=== PATIENT | male | born 1950 | race Caucasian/White ===

== ENCOUNTER → 2020-01-20 13:42 | Outpatient (REF) | payer MEDICARE, SELFPAY | LOC: ANHLAB 13:42 | PROVIDERS: PCP Internal Medicine; Visit Provider Nurse Practitioner | DX: C44.519 Basal cell carcinoma of skin of other part of trunk (principal) | CPT/HCPCS: 88305 ==

== ENCOUNTER → 2020-03-15 08:06 | Outpatient (REF) | payer MEDICARE, SELFPAY | LOC: ANHLAB 08:06 | PROVIDERS: PCP Internal Medicine; Visit Provider Nurse Practitioner | DX: C44.519 Basal cell carcinoma of skin of other part of trunk (principal) | CPT/HCPCS: 88305; 88331; 88342 ==

== ENCOUNTER → 2020-05-06 12:58 | Outpatient (REF) | payer MEDICARE, SELFPAY | LOC: ANHLAB 12:58 | PROVIDERS: PCP Internal Medicine; Visit Provider Nurse Practitioner | DX: D22.5 Melanocytic nevi of trunk (principal) | CPT/HCPCS: 88305; 88342 ==

== ENCOUNTER 2020-06-23 10:02 | Outpatient (CLI) | payer MEDICARE, SELFPAY ==
--- NOTE | ~2020-06-23 | US_ITS ---
EXAMINATION: US aorta [facility] DATE: 06/23/2020 10:39 INDICATION: Abdominal aortic aneurysm screening. TECHNIQUE: Grayscale, color Doppler, and pulsed Doppler images of the aorta and common iliac arteries were obtained. COMPARISON: None. FINDINGS: The aorta is normal in caliber. The right common iliac artery is normal in caliber. The left common i liac artery is normal in caliber. IMPRESSION: 1. No abdominal aortic aneurysm. Reviewed, dictated and finalized at location B.
== END 2020-06-23 10:03 | disposition home or self-care (01) ==
PROVIDERS: PCP Internal Medicine; Visit Provider Internal Medicine
DX: Z13.6 Encounter for screening for cardiovascular disorders (principal); Z87.891 Personal history of nicotine dependence
CPT/HCPCS: 76706

== ENCOUNTER 2020-09-07 14:55 | Outpatient (CLI) | payer MEDICARE, SELFPAY ==
--- NOTE | ~2020-09-07 | XR_ITS ---
XR knee RT 3V 09/07/2020 15:15 INDICATION: Right knee pain for 2 months. PROCEDURE: 3 views right knee COMPARISON: No prior studies for comparison. FINDINGS: Fracture, dislocation or subluxation is not identified. No significant joint effusion. The soft tissues appear within normal limits. No foreign bodies are identified. IMPRESSION: 1: NO ACUTE BONE OR JOINT ABNORMALITY IDENTIFIED. Reviewed, dictated and finalized at location A.
== END 2020-09-07 14:56 | disposition home or self-care (01) ==
LOC: ANHIMG 14:59
PROVIDERS: PCP Internal Medicine; Visit Provider Internal Medicine
DX: M25.561 Pain in right knee (principal)
CPT/HCPCS: 73562

== ENCOUNTER 2020-10-04 13:05 | Outpatient (CLI) | payer MEDICARE, SELFPAY ==
--- NOTE | ~2020-10-04 | MR_ITS ---
EXAMINATION: MR knee RT wo con DATE: 10/04/2020 14:07 INDICATION: Unspecified right knee pain TECHNIQUE: Magnetic resonance imaging (MRI) of the right knee was performed without intravenous contr ast. Sequences included coronal PD-weighted FSE, coronal PD-weighted FS FSE, sagittal T2-weighted FS E, sagittal PD-weighted FS FSE and axial PD weighted fat saturated FSE. COMPARISON: None. FINDINGS: Medial compartment: Complex tear of the the body and posterior horn of the medial meniscus. Articular cartilage is carmina l. Lateral compartment: Lateral meniscus is normal. Small region of shallow chondral fissuring at the anterior weightbearing lateral femoral condyle. Patellofemoral compartment: Partial-thickness chondral ulceration with deeper fissuring at the cephalad aspect of the lateral pat ellar facet. Small region of deep chondral fissuring at the central aspect of the medial patellar fac et. Ligaments and tendons: Anterior and posterior cruciate ligaments are normal. The medial collateral ligament and fibular marilee ateral ligament complex are normal. Moderate distal quadriceps tendinopathy without discrete tear. Sm all amount of enthesopathic ossification the distal quadriceps tendon. Patellar tendon is normal. The visualized medial and lateral hamstring tendons as well as the iliotibial band are normal. Fluid: Physiologic amount of fluid in the joint space. No loose osteochondral bodies identified. Minimal pre patellar bursitis. Subcutaneous edema anterior to the patellar tendon. Osseous/other: Nonspecific mild marrow edema at the medial side of the patella. Otherwise normal marrow signal. No f racture or pathologic marrow replacing process. There is some fatty atrophy of the visualized distal semimembranosus muscle belly. IMPRESSION: 1. Complex medial meniscal tear. 2. Mild medial and patellofemoral osteoarthritis with small regions of moderate grade chondromalacia. 3. Chronic quadriceps enthesopathy with moderate tendinopathy and small amount of enthesopathic ossif ication. 4. Prepatellar bursitis and calcific mild marrow edema in the underlying medial aspect of the patella . Reviewed, dictated and finalized at location B. IMPRESSION: 1. Complex medial meniscal tear. 2. Mild medial and patellofemoral osteoarthritis with small regions of moderate grade chondromalacia. 3. Chronic quadriceps enthesopathy with moderate tendinopathy and small amount of enthesopathic ossification. 4. Prepatellar bursitis and calcific mild marrow edema in the underlying medial aspect of the patella.
== END 2020-10-04 13:06 | disposition home or self-care (01) ==
PROVIDERS: PCP Internal Medicine; Visit Provider Internal Medicine
DX: M25.561 Pain in right knee (principal); S83.231A Complex tear of medial meniscus, current injury, right knee, initial encounter; M17.11 Unilateral primary osteoarthritis, right knee; M94.261 Chondromalacia, right knee; M76.891 Other specified enthesopathies of right lower limb, excluding foot
CPT/HCPCS: 73721

== ENCOUNTER 2021-10-21 08:59 | Emergency (ER) | payer MEDICARE, SELFPAY ==
[2021-10-21 09:07] VITALS: BP 168/88; PULSE 97; RESP 18; TEMP 37.7; O2SAT 97
--- NOTE | 2021-10-21 09:15 | ED.URI ---
HPI - URI/Sore Throat General Chief Complaint: Upper Respiratory Infection Stated Complaint: Sinus Time Seen by Provider: 10/21/21 09:16 History of Present Illness HPI Narrative: Naga Fabian is a 71 yo male with high cholesterol, GERD osteoarthritis w history of basal cell carcinoma, comes with complaints of sinus pressure that is going in the jaw and ear since yesterday no fever no chills no other symptoms he has a mild dry cough Related Data Allergies Allergy/AdvReac Type Severity Reaction Status Date / Time No Known Allergies Allergy Verified 07/01/21 10:53 Review of Systems Review of Systems: CONSTITUTIONAL: Denies fever, chills, sweats. EYES: Denies visual changes, redness, discharge. ENT: Denies rhinorrhea, congestion, sore throat, otalgia. Sinus pressure CARDIOVASCULAR: Denies chest pain, palpitations, edema. RESPIRATORY: Denies dyspnea, wheezing, mild cough c GASTROINTESTINAL: Denies abdominal pain, nausea, vomiting, diarrhea. GENITOURINARY: Denies dysuria, hematuria, abnormal discharge SKIN: Denies rash or itching. NEUROLOGIC: Denies numbness, or focal weakness. PSYCHIATRIC: Denies anxiety or depression. [facility] Past Medical History Medical History (Updated 10/21/21 @ 09:27 by Shira Sharma CNP) GERD (gastroesophageal reflux disease) High cholesterol History of basal cell carcinoma of skin Osteoarthritis Family History Family History Father Carcinoma of colon Mother Family history of Alzheimer's disease, Onset Age: 83 Patient's mother is , Onset Age: 83 Social History Social History Years smoked: 5 Tobacco type: pipe Second hand tobacco smoke exposure: Yes Alcohol intake: current Drinks per week: 5 Alcohol use details: social Substance use: never Substance use type: does not use Comments At time of signature, I agree with nursing past medical, surgical, social and family history. There is no relevant family history pertinent to the presenting complaint. Exam Narrative: GENERAL: This is a well-nourished, well-developed patient, in mild distress. HEAD: normocephalic, atraumatic. EYES: Sclera clear/white. Vision is grossly intact. EARS: External ears normal, auditory canals clear and without drainage, Some fluid behind TMs normal without perforation. Hearing grossly intact. NOSE: External nose normal without nasal discharge, nares without redness, no rhinorrhea. THROAT: Mucous membranes moist, posterior pharynx mild erythema NECK: Neck supple, n CARDIOVASCULAR: Regular rate and rhythm without murmurs, gallops, or rubs. RESPIRATORY: Clear to auscultation. Breath sounds equal bilaterally. No wheezes, rales, or rhonchi. GASTROINTESTINAL: Not done SKIN: warm, intact with no suspicious lesions or rash, good texture and turgor. NEURO: awake, alert, and oriented to person, place and time. There were no obvious focal neurologic abnormalities. Steady gait EXTREMITIES: Normal range of motion. BACK: Nontender without deformity Course Course Emergency Course: Patient comes with sinus pressure and a mild cough since yesterday Darted on steroids 40 mg a day x5 days and Tessalon Perles should use Flonase if continues to have difficulty discussed using Zyrtec every day for allergies Level of Care: Express Care Visit Vital Signs Vital signs: Vital Signs Temperature 99.9 F H 10/21/21 09:07 Pulse Rate 97 10/21/21 09:07 Respiratory Rate 18 10/21/21 09:07 Blood Pressure 168/88 H 10/21/21 09:07 Pulse Oximetry 97 10/21/21 09:07 Oxygen Delivery Room Air 10/21/21 09:07 Temperature 99.9 F H 10/21/21 09:07 Pulse Rate 97 10/21/21 09:07 Respiratory Rate 18 10/21/21 09:07 Blood Pressure 168/88 H 10/21/21 09:07 Pulse Oximetry 97 10/21/21 09:07 Oxygen Delivery Room Air 10/21/21 09:07 MDM - URI/Sore Throat Different
== END 2021-10-21 09:33 | disposition home or self-care (01) ==
PROVIDERS: Emergency Provider Nurse Practitioner; PCP Internal Medicine
DX: J01.10 Acute frontal sinusitis, unspecified (principal); K21.9 Gastro-esophageal reflux disease without esophagitis; E78.00 Pure hypercholesterolemia, unspecified; M19.90 Unspecified osteoarthritis, unspecified site; Z85.828 Personal history of other malignant neoplasm of skin
CPT/HCPCS: 99213; G0463

== ENCOUNTER 2021-11-29 14:50 | Outpatient (NON) | payer MEDICARE, SELFPAY | END 2021-11-29 14:51 | disposition home or self-care (01) | LOC: ANHLAB 14:54 | PROVIDERS: PCP Internal Medicine; Visit Provider Nurse Practitioner | DX: C44.92 Squamous cell carcinoma of skin, unspecified (principal); L82.1 Other seborrheic keratosis | CPT/HCPCS: 88305; 88342 ==

== ENCOUNTER 2021-12-26 12:43 | Outpatient (NON) | payer MEDICARE, SELFPAY | END 2021-12-26 12:44 | disposition home or self-care (01) | LOC: ANHLAB 12:43 | PROVIDERS: PCP Internal Medicine; Visit Provider Nurse Practitioner | DX: C44.92 Squamous cell carcinoma of skin, unspecified (principal) | CPT/HCPCS: 88305; 88331 ==

== ENCOUNTER 2022-09-05 12:06 | Outpatient (NON) | payer MEDICARE, SELFPAY | END 2022-09-05 12:07 | disposition home or self-care (01) | PROVIDERS: Visit Provider Nurse Practitioner | DX: L57.0 Actinic keratosis (principal) | CPT/HCPCS: 88305 ==

== ENCOUNTER 2022-09-08 18:38 | Emergency (ER) | payer MEDICARE, SELFPAY ==
--- NOTE | ~2022-09-08 | XR_ITS ---
XR knee RT 3V 09/08/2022 20:02 Indication: Right knee pain after fall. Procedure: 3 views right knee Comparison: 09/07/2020 Findings: No acute fracture is identified. There is a large joint effusion. There are multiple ossifi c densities in the suprapatellar soft tissues, consistent with heterotopic ossification. Impression: 1: No acute fracture. 2: Large joint effusion with heterotopic ossification in the suprapatellar soft tissues. Reviewed, dictated and finalized at location A. Impression: 1: No acute fracture. 2: Large joint effusion with heterotopic ossification in the suprapatellar sof t tissues.
[2022-09-08 18:59] VITALS: BP 129/101; PULSE 77; RESP 18; TEMP 36.6; O2SAT 99
[2022-09-09 00:18] VITALS: BP 166/104; PULSE 74; RESP 15; O2SAT 100
--- NOTE | 2022-09-09 01:29 | ED.LOWEXIN ---
HPI - Extremity Injury (Lower) General Chief Complaint: Extremity Injury, Lower Stated Complaint: multiple falls, right knee gave out Time Seen by Provider: 09/09/22 00:25 Source: patient Mode of arrival: wheelchair Limitations: no limitations History of Present Illness HPI Narrative: This is a 72 year old male that presents to the ER for right knee pain after an injury earlier today. Reports he was trying to get onto a stool and fell backwards. He did not hit his head or lose consciousness. Denies any other injuries. Reports he is unable to bear weight on the leg. Reports decreased ROM. Denies numbness. Related Data Allergies Allergy/AdvReac Type Severity Reaction Status Date / Time No Known Allergies Allergy Verified 08/22/22 09:51 Review of Systems Review of Systems: CONSTITUTIONAL: Denies fever GASTROINTESTINAL: Denies vomiting MUSCULOSKELETAL: Reports joint pain, and myalgia. NEUROLOGIC: Denies numbness All systems reviewed & are unremarkable except as noted in HPI and below PMFSH Past Medical History Medical History COVID-19 GERD (gastroesophageal reflux disease) High cholesterol History of basal cell carcinoma of skin Osteoarthritis Family History Family History Father Carcinoma of colon Mother Family history of Alzheimer's disease, Onset Age: 83 Patient's mother is , Onset Age: 83 Social History Social History (Updated 08/22/22 @ 09:52 by Amanda Sharma CMA) Years smoked: 5 Smoking status: Former smoker Tobacco type: pipe Second hand tobacco smoke exposure: Yes Alcohol intake: current Drinks per week: 5 Alcohol use details: social Substance use: never Substance use type: does not use Lack of Transportation: No Lack of Food: Never True Current Housing: I Have Housing Concerned About Future Housing: No Difficulty Paying Gas/Electric Bills: No Difficulty Paying for Meds: No Currently Unemployed: No Education: Master's Degree or Higher Difficulty w/ Childcare or Family Care: No Exam Narrative: GENERAL: Well-appearing, well-nourished, and in no acute distress. HEAD: Normocephalic, atraumatic. EYES: PERRLA and EOMI. ENT: Nares clear, no rhinorrhea or epistaxis. Mucous membranes moist. Oropharynx without tonsillar hypertrophy exudate or other lesions. Bilateral TMs pearly lheman non-bulging NECK: Supple. No adenopathy or masses. No midline spinal tenderness CHEST: Clear to auscultation. No respiratory distress. No wheezes rales or rhonchi HEART: Regular rate and rhythm. No murmur heard. Normal peripheral pulses. BACK: No midline spinal tenderness EXTREMITIES: Decreased active ROM in the right knee. Unable to perform straight leg raise. Defect palpated at the quadriceps tendon. Joint effusion noted. Normal DP pulse. Normal sensation SKIN: Warm, dry, no rash. NEURO: No focal deficits. Alert and oriented x3. PSYCH: Normal mood and affect Course Course Emergency Course: Patient and family updated on workup and agree with plan of care Vital Signs Vital signs: Vital Signs Temperature 97.9 F 09/08/22 18:59 Pulse Rate 77 09/08/22 18:59 Respiratory Rate 18 09/08/22 18:59 Blood Pressure 129/101 H 09/08/22 18:59 Pulse Oximetry 99 09/08/22 18:59 Oxygen Delivery Room Air 09/08/22 18:59 Temperature 97.9 F 09/08/22 18:59 Pulse Rate 74 09/09/22 00:18 Respiratory Rate 15 09/09/22 00:18 Blood Pressure 166/104 H 09/09/22 00:18 Pulse Oximetry 100 09/09/22 00:18 Oxygen Delivery Room Air 09/08/22 18:59 MDM - Extremity Injury (Lower) MDM Narrative Medical decision making narrative: Patient presents to the ER for right knee injury sustained just prior to arrival. Reports falling off of a stool injuring the right knee. He did not hit his head or lose consciousness. He denies any oth
[2022-09-09] MEDS: HYDROcodone/acetaminophen (*CRX) 5-325 MG TABLET 1 TAB PO (01:36)
[2022-09-09 02:09] VITALS: BP 134/78; PULSE 78; RESP 15; O2SAT 100
== END 2022-09-09 02:11 | disposition home or self-care (01) ==
PROVIDERS: Emergency Provider Physician Assistant; PCP Family Medicine
DX: S89.91XA Unspecified injury of right lower leg, initial encounter (principal); E78.00 Pure hypercholesterolemia, unspecified; K21.9 Gastro-esophageal reflux disease without esophagitis; M19.90 Unspecified osteoarthritis, unspecified site; Z86.16 Personal history of COVID-19; Z85.828 Personal history of other malignant neoplasm of skin; Z87.891 Personal history of nicotine dependence; W17.89XA Other fall from one level to another, initial encounter
CPT/HCPCS: 73562; 99283; A9270

== ENCOUNTER 2022-09-14 00:58 | Day surgery (SDC) | payer MEDICARE, SELFPAY ==
[2022-09-13 08:33] VITALS: BMI 25.1
--- NOTE | 2022-09-13 08:38 | PC.NURSE ---
Report to the Outpatient Waiting Room, entrance under the green pavilion located off [facility], at time 0830 on date 09/14/22. Planned Procedure Time: 1030. Time changes happen often and if your time is changed the preop area will call you the afternoon before. - You and your visitor will be asked to self-screen and do not enter if you have any COVID symptoms. - A mask is optional within the hospital at this time. Patients may have clear liquids (water, carbonated beverages, clear teas, apple juice) until 3 hours prior to surgery with a maximum of 20 ounces. - No food from midnight until time of surgery Take the following medications with a SIP of water the morning of surgery: GABAPENTIN DO NOT STOP ANY OF YOUR OTHER PRESCRIPTION MEDICATIONS PRIOR TO SURGERY ?EXCEPT THE FOLLOWING Medications to discontinue per physician: VITAMINS/SUPPLEMENTS Date to take last dose: NO MORE UNTIL AFTER SURGERY Please no make-up, nail mohawk, hairspray, perfume, deodorant, or body powder the day of surgery. No jewelry (including any body piercings) or valuables the day of surgery, leave them at home. Please take a shower or bath the night before, or the morning of, surgery with an antibacterial soap. Wear comfortable, loose fitting clothing. - Jewelry must be removed prior to entering the operating room. Rings and piercings that are not removed may be cut off. - The hospital will not accept responsibility for valuables. - Please leave all valuables, including medications, at home the day of surgery. If you are going home after surgery, a licensed trencher driver must drive you home. - NO public transportation without another adult if you receive anesthesia. - We recommend that an adult stay with you for 24 hours following discharge. - We also recommend that you do not drive, make important decision, drink alcoholic beverages, or take any drugs that were not prescribed by your health care provider for at least 24 hours after your discharge time. Follow any additional instructions given to you from your surgeon. If you or anyone in your household have experienced Covid symptoms in the past week, please notify your surgeon or the nurse liaison at the phone number below for possible testing. Telephone instructions given to PT - REY BERNARD and asked if any additional questions and then verbalized understanding. Patient advised to call surgeon office or pre surgery nurse liaison [phone] if any additional questions.
--- NOTE | 2022-09-13 14:11 | WPDANESEPPF ---
Anes - Initial Pre Proc Eval Procedure: Operation Date: 09/14/22 10:30 Proposed Procedures p Repair Right Quadriceps Rupture - Donn Christianson MD Date/Time: 09/13/22 14:11 Surgeon: Donn Christianson MD Pre Op Diagnosis: Rt Quad Rupture Patient Data Age: 72 Gender: M Height: 1.75 m Weight: 77.15 kg Allergies Allergy/AdvReac Type Severity Reaction Status Date / Time No Known Allergies Allergy Verified 09/13/22 08:32 Home Medications Medication Instructions Recorded Confirmed Type finasteride 5 mg tablet 5 mg PO DAILY #1 tablet 07/01/21 09/13/22 Rx atenolol 50 mg tablet See Rx Instructions .Route 06/08/22 09/13/22 Rx .COMPLEX #90 tabs gabapentin 400 mg capsule 1,200 mg PO BID #540 caps 06/12/22 09/13/22 Rx omeprazole 40 mg capsule,delayed See Rx Instructions .Route 06/30/22 09/13/22 Rx release .COMPLEX #90 caps rosuvastatin 40 mg tablet See Rx Instructions .Route 08/10/22 09/13/22 Rx .COMPLEX #90 tabs mecobalamin (vitamin B12) 1,000 1,000 mcg sublingual DAILY #90 tabs 08/14/22 09/13/22 Rx mcg disintegrating tablet,sublingual multivitamin 1 tablet PO DAILY 09/13/22 09/13/22 History Patient hx anesthesia problems: none Family hx anesthesia problems: none Results Review: All pre-operative results and documents have been reviewed as part of the pre-operative evaluation. [facility] Past Medical History Medical History (Updated 09/13/22 @ 14:11 by Gab Tomas DO) Benign essential hypertension COVID-19 GERD (gastroesophageal reflux disease) High cholesterol History of basal cell carcinoma of skin Osteoarthritis Rupture of right quadriceps tendon Family History Family History Father Carcinoma of colon Mother Family history of Alzheimer's disease, Onset Age: 83 Patient's mother is , Onset Age: 83 Unknown Hypertension Hyperlipidemia Social History Social History Years smoked: 5 Smoking status: Current every day smoker Tobacco type: cigarettes and pipe Second hand tobacco smoke exposure: Yes Additional smoking assessment comments: FORMER CIGARETTES, NOW PIPE Alcohol intake: current Drinks per week: 7 Alcohol use details: social Substance use: never Substance use type: does not use Lack of Transportation: No Lack of Food: Never True Current Housing: I Have Housing Concerned About Future Housing: No Difficulty Paying Gas/Electric Bills: No Difficulty Paying for Meds: No Currently Unemployed: No Education: Master's Degree or Higher Difficulty w/ Childcare or Family Care: No Living arrangements: with family Occupation/Education: retired Gender identity (if verbalized by the patient): Male Spiritual care concerns: No Anes - Eval Final PreProcedure Day of Procedure 09/13/22 14:11 Patient weight: overweight Heart: regular rate and rhythm Lungs: clear to auscultation Airway: Mallampati scale class II Neurological: alert and oriented Last oral intake: >/= 8 hours ASA classification: III Emergent: no Anesthetic plan: proceed Anesthesia type and monitoring: general LMA and standard monitoring Results Review: All pre-operative results and documents have been reviewed as part of the pre-operative evaluation. Informed Consent: The patient's anesthetic plan and its attendant risks and benefits were discussed with the patient/family/POA. Questions were solicited and answers provided to the satisfaction of the patient/family/POA.
[2022-09-14] VITALS (8 sets, daily range): BP systolic 143–181; BP diastolic 80–94; PULSE 51–61; RESP 12–20; TEMP 36.8; O2SAT 97–100
--- NOTE | 2022-09-14 07:13 | WPDHPUPDATE1 ---
History and Physical Update Update Date/Time: 09/14/22 07:13 History and Physical has been reviewed, including an updated exam of the patient. There are NO changes in the patient's condition. Risks, benefits, and alternatives have been discussed and questions answered. Patient agrees to proceed with procedure.
--- NOTE | 2022-09-14 07:18 | ECG_ITS ---
Measurements Intervals [place] Rate: 56 P: 50 MN: 198 QRS: 13 QRSD: 91 T: 14 QT: 419 QTc: 406 Interpretive Statements SINUS BRADYCARDIA NO PREVIOUS ECG AVAILABLE FOR COMPARISON Electronically Signed On 09-14-2022 10:19:26 CDT by Vera Escoto M.D.
[2022-09-14] MEDS: KETOROLAC 15 MG/ML VIAL (*BKC) IV PUSH (09:45)
[2022-09-14] MEDS: ACETAMINOPHEN 500 MG TABLET 1000 MG PO (09:45)
[2022-09-14] MEDS: LACTATED RINGERS 1,000 ML 30 ML IV CONT (09:45)
[2022-09-14] MEDS: ceFAZolin 2 GM/D5W 50 ML 2 GM/50 ML BAG IVPB (10:20)
[2022-09-14] MEDS: BUPivacaine HCL 0.5% 10 ML AMP 20 ML INFILTRATE (11:21)
--- NOTE | 2022-09-14 11:48 | W.PM.PROC2 ---
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 Presents for operative treatment Findings complete rupture quadriceps tendon, medial and lateral retinaculum. Description of Procedure Patient identified in the preoperative holding.? Informed consent given.? Operative extremity marked.? Patient received intravenous antibiotics.? Patient brought to the operating room where underwent general anesthetic by anesthesia team.? Positioned supine on operating room table.? Time-out performed confirming the patient, site of the surgery and the plan. right knee prepped and draped usual sterile surgical fashion using a ChloraPrep skin solution.? Leg and knee exsanguinated with an Esmarch bandage and a thigh tourniquet inflated to 250 mmHg.? Local anesthetic with 0.5% Marcaine plain.? Longitudinal incision made over the patella with a 15 blade knife.? Hemostasis controlled electrocautery.? Fascia incised in line with skin incision.? Complete rupture of the quadriceps tendon from the patella was noted as well as rupture of the medial and lateral retinaculum.? This provided direct view into the knee joint.? No damage into the knee joint was noted.? Knee joint thoroughly irrigated with saline and suctioned.? Repair of the quadriceps tendon then performed with 2 mm FiberTape was passed in a locking Krackow suture through the quadriceps tendon.? The 2 tails were then attached to the patella with SwiveLock anchors, 4.75 mm.? Good repair noted.? Knee taken through a range of motion and the repair noted to be stable.? Fluoroscopic images confirmed the placement of the anchors.? The medial lateral retinaculum were then repaired with 0 Vicryl interrupted suture.? Wound irrigated once again and fascia repaired with 2 Vicryl interrupted suture.? Subcutaneous tissue repaired with 3 0 Monocryl running subcuticular stitch.? Dermabond used for the skin.? Tourniquet released good capillary refill noted. Sterile dressing applied.? The patient was then woken from anesthesia, extubated and taken to the recovery room in stable condition.? All sponge, needle, instrument counts were correct at the end of the case. Implants 4.75 mm SwiveLock anchor x2 Estimated Blood Loss 5 Tourniquet Time 49 Drains No Packing No Pathology None sent Complications None Condition Stable Disposition PACU [facility] Billing Surgery - Charge Forward: Surgery Billing ([id number])
[2022-09-14] MEDS: fentaNYL CITRATE INJ (*CRX) 100 MCG/2 ML VIAL 25 MCG IV PUSH ×4 (11:53→12:00)
[2022-09-14] MEDS: oxyCODONE HCL (*CRX) 5 MG TAB IR PO (12:39)
== END 2022-09-14 13:11 | disposition home or self-care (01) ==
PROVIDERS: PCP Family Medicine; Visit Provider Orthopaedic Surgery
PROC: (CPT 27385; principal; 2022-09-14 10:30)
DX: S76.111A Strain of right quadriceps muscle, fascia and tendon, initial encounter (principal); W19.XXXA Unspecified fall, initial encounter; E78.00 Pure hypercholesterolemia, unspecified; I10 Essential (primary) hypertension; K21.9 Gastro-esophageal reflux disease without esophagitis; F17.290 Nicotine dependence, other tobacco product, uncomplicated
CPT/HCPCS: 27385; 93005; A9270; J0690; J1100; J1885; J2250; J2405; J2704; J3010; J7120

== ENCOUNTER 2022-10-03 15:15 | Outpatient (CLI) | payer MEDICARE, SELFPAY ==
[2022-10-03 16:48] LABS: Erythrocyte Sedimentation Rate 18 mm/hr (0-20)
[2022-10-03 16:53] LABS: CRP < 0.5 mg/dL (<1.0); Uric Acid 4.3 mg/dL (3.5-8.5)
[2022-10-03 17:47] LABS: Rheumatoid Factor < 12.0 IU/ML (<12)
== END 2022-10-03 15:16 | disposition home or self-care (01) ==
PROVIDERS: PCP Family Medicine; Visit Provider Podiatrist Foot & Ankle Surgery
DX: M10.9 Gout, unspecified (principal); M06.9 Rheumatoid arthritis, unspecified; L40.50 Arthropathic psoriasis, unspecified
CPT/HCPCS: 36415; 84550; 85652; 86038; 86140; 86430; 86812

== ENCOUNTER 2022-10-06 09:43 | Outpatient (CLI) | payer MEDICARE, SELFPAY ==
[2022-10-10 17:18] LABS: HLA B27 Negative (Negative)
== END 2022-10-06 09:44 | disposition home or self-care (01) ==
PROVIDERS: PCP Family Medicine; Visit Provider Podiatrist Foot & Ankle Surgery
DX: M10.9 Gout, unspecified (principal); M06.9 Rheumatoid arthritis, unspecified; M54.6 Pain in thoracic spine; M32.9 Systemic lupus erythematosus, unspecified; L40.52 Psoriatic arthritis mutilans; M45.6 Ankylosing spondylitis lumbar region
CPT/HCPCS: 36415; 86812

== ENCOUNTER 2022-11-23 15:45 | Outpatient (RCR) | payer MEDICARE, SELFPAY ==
--- NOTE | 2022-09-21 09:53 | PTOPEVAL1 ---
Assessment and note entered by Joselito Dillard, PT Evaluation Information Assessment Status Evaluation Diagnosis Strain of right quadriceps, R knee pain Onset 09/14/22 Subjective Information Reports that he fell and bent his knee resulting in traumatic knee injury. He has since surgery been in a immobilizer and has not initiated any movement. Reports that he is weight bearing as tolerated and walking comfortably without the walker. Pain has been well controlled. He is sleeping with knee immobilizer and only has issues when turning or rolling in bed. Reported Pain Level Pain Score 5: Self Report Assessment PT Clinical Summary Patient presents with signs and symptoms consistent with distal quad repair. Incision clean and dry. Presents with edema, decreased knee ROM, and altered gait. He will benefit from skilled therapy to progress through knee ROM and progress to strengthening when allowed by protocol. Plan of Care Interventions Gait Training,Manual Therapy,Neuro Re-education, Therapeutic Activities,Therapeutic Exercise PT Services Indicated Yes Treatment Frequency and 2x/week for 8 weeks Duration These treatments will address the objective and functional deficits as defined above. The patient will be advanced safely and appropriately in order for the patient to progress towards his/her prior level of function. Additional exercises will be introduced and as well as a comprehensive home exercise program upon discharge, if needed, ?to ensure carryover of functional gains achieved in the clinic. This treatment plan has been reviewed and agreement upon by the patient.
--- NOTE | 2022-09-21 09:54 | OPREHPOC ---
Outpatient Therapy Plan of Care This is a Multidisciplinary Plan of Care that may contain components documented by all disciplines (PT, OT, and ST.) PT Goal 1 Goal Demonstrate independence with Knee ROM and tone building HEP Target Visit 8 PT Problem 2 PT Problem #2 Pain PT Goal 1 Goal Report 0/10 pain when sleeping with positional change Target Visit 8 PT Problem 3 PT Problem #3 Impaired Range of Motion PT Goal 1 Goal Demonstrate 130 degrees of R knee flexion ROM Target Visit 16 PT Problem 4 PT Problem #4 Edema PT Goal 1 Goal Demonstrate 2 cm+ reduction in R knee circumference indicating soft tissue healing Target Visit 16 PT Problem 5 PT Problem #5 Impaired Gait PT Goal 1 Goal Ambulate independently of knee immobilizer with even stride length bilaterally
--- NOTE | 2022-10-23 11:02 | OPREHPOC ---
Outpatient Therapy Plan of Care This is a Multidisciplinary Plan of Care that may contain components documented by all disciplines (PT, OT, and ST.) PT Goal 1 Goal Demonstrate independence with Knee ROM and tone building HEP Target Visit 8 Progress Met PT Problem 2 PT Problem #2 Pain PT Goal 1 Goal Report 0/10 pain when sleeping with positional change Target Visit 8 Progress Met PT Problem 3 PT Problem #3 Impaired Range of Motion PT Goal 1 Goal Demonstrate 130 degrees of R knee flexion ROM Target Visit 16 Progress Partially Met Comment Excellent progress made to this point. PT Problem 4 PT Problem #4 Edema PT Goal 1 Goal Demonstrate 2 cm+ reduction in R knee circumference indicating soft tissue healing Target Visit 16 Progress Not Met Comment No progress at this time secondary to recent trauma. PT Problem 5 PT Problem #5 Impaired Gait PT Goal 1 Goal Ambulate independently of knee immobilizer with even stride length bilaterally Progress Partially Met Comment Independent of immobilizer, but still deviation in gait.
--- NOTE | 2022-10-23 11:02 | PTOPPROG ---
Assessment and note entered by Joselito Dillard, PT Evaluation Information Assessment Status Evaluation Diagnosis Strain of right quadriceps, R knee pain Onset 09/14/22 Subjective Information Reports that he slipped into his pool yesterday. He was initially very sore but feels he is doing okay at this time. Feels comfortable with ambulation and does not feel he had any significant injury. He has been independent with walking in the brace. No concerns for continued progress. Follows up with MD on 11/01/22. Assessment PT Clinical Summary Patient has made significant ROM and strength progress. His recent fall appears to set him back in inflammation but he is still considerably functionally better. Will continue to benefit from skilled therapy to continue to monitor healing, improve gait, and improve functional knee stability. Plan of Care Interventions Gait Training,Manual Therapy,Neuro Re-education, Therapeutic Activities,Therapeutic Exercise PT Services Indicated Yes Treatment Frequency and 2x/week for 8 weeks Duration These treatments will address the objective and functional deficits as defined above. The patient will be advanced safely and appropriately in order for the patient to progress towards his/her prior level of function. Additional exercises will be introduced and as well as a comprehensive home exercise program upon discharge, if needed, ?to ensure carryover of functional gains achieved in the clinic. This treatment plan has been reviewed and agreement upon by the patient.
--- NOTE | 2022-11-23 16:35 | PTOPDC ---
Assessment and note entered by Quan Rosales Evaluation Information Assessment Status Discharge Diagnosis strain of right quadriceps, R knee pain Onset 09/14/22 Subjective Information Pt. reports that he is not having pain. 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 He states that stairs still have slight pain, but continues to improve. He reports that he is ready for discharge at this time. Reported Pain Level Pain Score 0: Self Report Assessment PT Clinical Summary Pt. has currently met all goals established at the initial evaluation. He is encouraged to continue with his HEP and will be discharged from our care at this time. Plan of Care PT Services Indicated D/C from PT to an independent HEP.
== END 2022-11-24 12:38 | disposition home or self-care (01) ==
LOC: ANHPT 15:45
PROVIDERS: PCP Family Medicine; Visit Provider Orthopaedic Surgery
DX: S76.111A Strain of right quadriceps muscle, fascia and tendon, initial encounter (principal)
CPT/HCPCS: 97110; 97112; 97140; 97161; 97530

== ENCOUNTER 2023-01-10 12:23 | Outpatient (CLI) | payer MEDICARE, SELFPAY ==
--- NOTE | ~2023-01-10 | MR_ITS ---
MRI of the left knee Clinical history: Osteoarthritis Technique: Coronal proton density and proton density-weighted images, sagittal proton-density and T2 fat-sat images, and axial proton-density fat-saturated images were acquired. Findings: Anterior and posterior cruciate ligaments are intact. Medial collateral ligament and the la teral collateral ligament conflux are intact. Popliteus tendon is intact. Lateral meniscus is intact, without evidence of tear. There is complex tearing of the posterior horn and body of the medial meniscus. Articular cartilage is relatively well preserved in the medial and lateral compartment. Femoral troch lear cartilage is well preserved. There is high-grade chondromalacia at the patellar apex with subcho ndral reactive marrow edema. Extensor mechanism demonstrates severe tendinosis of the distal quadriceps tendon. Possible low-grade linear interstitial tear at the distal quadriceps tendon. There is mild nonspecific edema in Hoffa's fat pad. No significant joint effusion or Bess's cyst. Impression: Complex tearing of the posterior horn and body of medial meniscus. 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 Severe distal quadriceps tendinosis with probable low-grade linear interstitial tear. Nonspecific edema within Hoffa's fat pad. Reviewed, dictated and finalized at [facility]. VIDEOGRAPHER Impression: Complex tearing of the posterior horn and body of medial meniscus. 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 Severe distal quadriceps tendinosis with probable low-grade linear interstitial tear. Nonspecific edema within Hoffa's fat pad.
== END 2023-01-10 12:24 | disposition home or self-care (01) ==
PROVIDERS: PCP Family Medicine; Visit Provider Orthopaedic Surgery
DX: M17.12 Unilateral primary osteoarthritis, left knee (principal); S83.232A Complex tear of medial meniscus, current injury, left knee, initial encounter; M22.42 Chondromalacia patellae, left knee; M77.8 Other enthesopathies, not elsewhere classified; M79.89 Other specified soft tissue disorders
CPT/HCPCS: 73721

== ENCOUNTER 2023-08-21 07:48 | Outpatient (NON) | payer MEDICARE, SELFPAY | END 2023-08-21 07:49 | disposition home or self-care (01) | LOC: ANHLAB 08-22 07:50 | PROVIDERS: PCP Family Medicine; Visit Provider Internal Medicine Gastroenterology | DX: D12.2 Benign neoplasm of ascending colon (principal) | CPT/HCPCS: 88305 ==

== ENCOUNTER 2023-08-21 10:14 | Day surgery (SDC) | payer MEDICARE, SELFPAY ==
[2023-08-10 08:19] VITALS: BMI 25.7
[2023-08-13 08:09] VITALS: BMI 25.1
--- NOTE | 2023-08-21 11:04 | PM.HPGS ---
History of Present Illness History of Present Illness Consent: Risks, benefits, and alternatives have been discussed and questions answered. Patient agrees to proceed with procedure. Chief complaint: Personal HX colon polyps Narrative: Naga Fabian is a 73 year old male here because of a history of polyps. He had 2 adenomatous polyps removed 5 years ago. Review of Systems Review of Systems: All systems reviewed & are unremarkable except as noted in HPI and below PMFSH Past Medical History Medical History Acute medial meniscus tear of left knee Arthritis of knee, left Benign essential hypertension COVID-19 GERD (gastroesophageal reflux disease) High cholesterol History of basal cell carcinoma of skin Osteoarthritis Rupture of right quadriceps tendon Family History Family History Father Carcinoma of colon Mother Family history of Alzheimer's disease, Onset Age: 83 Patient's mother is , Onset Age: 83 Unknown Hypertension Hyperlipidemia Social History Social History Years smoked: 5 Smoking status: Current every day smoker Tobacco type: pipe Second hand tobacco smoke exposure: Yes Additional smoking assessment comments: FORMER CIGARETTES, NOW PIPE Alcohol intake: current Drinks per week: 5 Alcohol use details: social Substance use: never Substance use type: does not use Lack of Transportation: No Lack of Food: Never True Current Housing: I Have Housing Concerned About Future Housing: No Difficulty Paying Gas/Electric Bills: No Difficulty Paying for Meds: No Currently Unemployed: No Education: Master's Degree or Higher Difficulty w/ Childcare or Family Care: No Living arrangements: with family Occupation/Education: retired Gender identity (if verbalized by the patient): Male Spiritual care concerns: No Meds Home Medications and Allergies Home Medications Medication Instructions Recorded Confirmed Type multivitamin 1 tablet PO DAILY 09/13/22 08/13/23 History polyethylene glycol 3350 17 gram 17 g PO DAILY PRN constipation #14 09/14/22 08/21/23 Rx oral powder packet ea diclofenac sodium 3 % topical gel 1 applic topical BID bilateral 03/16/23 08/21/23 Rx hand pain #100 grams gabapentin 400 mg capsule 1,200 mg PO BID #540 caps 06/20/23 08/21/23 Rx mecobalamin (vitamin B12) 1,000 1,000 mcg sublingual DAILY #90 tabs 07/23/23 08/21/23 Rx mcg disintegrating tablet,sublingual atenolol 50 mg tablet 50 mg PO DAILY 08/13/23 08/21/23 History finasteride 5 mg tablet 5 mg PO DAILY 08/13/23 08/21/23 History omeprazole 40 mg capsule,delayed 40 mg PO DAILY 08/13/23 08/21/23 History release rosuvastatin 40 mg tablet 40 mg PO DAILY 08/13/23 08/21/23 History Allergies Allergy/AdvReac Type Severity Reaction Status Date / Time No Known Allergies Allergy Verified 08/21/23 11:07 Exam Const: General: alert Orientation/consciousness: patient oriented x3 Resp: Auscultation: clear to auscultation bilaterally Cardio: Rhythm: regular rhythm GI: GI Palp: Yes Soft to palpation and No Tenderness to palpation present (GI) Neuro: General: patient oriented x3 Assessment and Plan Assessment and plan (1) Personal history of colonic polyps: Code(s): Z86.010 - Personal history of colonic polyps Status: Acute Assessment and Plan: Colonoscopy with possible biopsy or polypectomy or cautery or injection of substances.
[2023-08-21 11:13] VITALS: BP 149/96; PULSE 57; RESP 20; TEMP 36.6; O2SAT 100; BMI 24.8
[2023-08-21] MEDS: LACTATED RINGERS 1,000 ML 150 ML IV CONT (11:38)
--- NOTE | 2023-08-21 11:48 | WPDANESEPPF ---
Anes - Initial Pre Proc Eval Procedure: Operation Date: 08/21/23 12:00 Proposed Procedures p Diagnostic Colonoscopy - Tariq Jones MD Date/Time: 08/21/23 11:48 Surgeon: Tariq Jones MD Pre Op Diagnosis: Personal HX colon polyps Patient Data Age: 73 Gender: M Height: 1.75 m Weight: 76.25 kg Last Vital Signs Temp 36.6 C 08/21/23 11:13 Pulse 57 L 08/21/23 11:13 Resp 20 08/21/23 11:13 BP 149/96 H 08/21/23 11:13 Pulse Ox 100 08/21/23 11:13 O2 Del Method Room Air 08/21/23 11:13 Allergies Allergy/AdvReac Type Severity Reaction Status Date / Time No Known Allergies Allergy Verified 08/21/23 11:07 Home Medications Medication Instructions Recorded Confirmed Type multivitamin 1 tablet PO DAILY 09/13/22 08/13/23 History polyethylene glycol 3350 17 gram 17 g PO DAILY PRN constipation #14 09/14/22 08/21/23 Rx oral powder packet ea diclofenac sodium 3 % topical gel 1 applic topical BID bilateral 03/16/23 08/21/23 Rx hand pain #100 grams gabapentin 400 mg capsule 1,200 mg PO BID #540 caps 06/20/23 08/21/23 Rx mecobalamin (vitamin B12) 1,000 1,000 mcg sublingual DAILY #90 tabs 07/23/23 08/21/23 Rx mcg disintegrating tablet,sublingual atenolol 50 mg tablet 50 mg PO DAILY 08/13/23 08/21/23 History finasteride 5 mg tablet 5 mg PO DAILY 08/13/23 08/21/23 History omeprazole 40 mg capsule,delayed 40 mg PO DAILY 08/13/23 08/21/23 History release rosuvastatin 40 mg tablet 40 mg PO DAILY 08/13/23 08/21/23 History Patient hx anesthesia problems: none Family hx anesthesia problems: none Results Review: All pre-operative results and documents have been reviewed as part of the pre-operative evaluation. [facility] Past Medical History Medical History Acute medial meniscus tear of left knee Arthritis of knee, left Benign essential hypertension COVID-19 GERD (gastroesophageal reflux disease) High cholesterol History of basal cell carcinoma of skin Osteoarthritis Rupture of right quadriceps tendon Family History Family History Father Carcinoma of colon Mother Family history of Alzheimer's disease, Onset Age: 83 Patient's mother is , Onset Age: 83 Unknown Hypertension Hyperlipidemia Social History Social History Years smoked: 5 Smoking status: Current every day smoker Tobacco type: pipe Second hand tobacco smoke exposure: Yes Additional smoking assessment comments: FORMER CIGARETTES, NOW PIPE Alcohol intake: current Drinks per week: 5 Alcohol use details: social Substance use: never Substance use type: does not use Lack of Transportation: No Lack of Food: Never True Current Housing: I Have Housing Concerned About Future Housing: No Difficulty Paying Gas/Electric Bills: No Difficulty Paying for Meds: No Currently Unemployed: No Education: Master's Degree or Higher Difficulty w/ Childcare or Family Care: No Living arrangements: with family Occupation/Education: retired Gender identity (if verbalized by the patient): Male Spiritual care concerns: No Anes - Eval Final PreProcedure Day of Procedure 08/21/23 11:48 Patient weight: normal Heart: regular rate and rhythm Lungs: clear to auscultation Airway: Mallampati scale class II Neurological: alert and oriented Last oral intake: >/= 8 hours ASA classification: III Emergent: no Anesthetic plan: proceed Anesthesia type and monitoring: general GIVS and standard monitoring Results Review: All pre-operative results and documents have been reviewed as part of the pre-operative evaluation. Informed Consent: The patient's anesthetic plan and its attendant risks and benefits were discussed with the patient/family/POA. Questions were solicited and answers provided to the satisfaction of the p
[2023-08-21 12:13] VITALS: BP 101/57; PULSE 59; RESP 12; O2SAT 97
[2023-08-21 12:23] VITALS: BP 109/72; PULSE 60; RESP 14; O2SAT 100
--- NOTE | 2023-08-21 12:27 | WPDANESPN ---
Anes - Prog Note Post-Op Date/Time: 08/21/23 12:27 Cardiovascular status: normal Respiratory status: normal Airway patency: baseline Mental status: baseline Post-Op hydration status: normal Vital Signs: Last Vital Signs Temp 36.6 C 08/21/23 11:13 Pulse 59 L 08/21/23 12:13 Resp 12 08/21/23 12:13 BP 101/57 L 08/21/23 12:13 Pulse Ox 97 08/21/23 12:13 O2 Del Method Room Air 08/21/23 12:13 Pain Score (VAS): 0/10 I/O: Intake & Output 08/20/23 08/21/23 08/21/23 23:59 07:59 15:59 Intake Total 400 Balance 400 Patient Feedback: Patient satisfied with anesthetic care.
[2023-08-21 12:33] VITALS: BP 122/72; PULSE 57; RESP 20; O2SAT 99
== END 2023-08-21 12:45 | disposition home or self-care (01) ==
PROVIDERS: PCP Family Medicine; Visit Provider Internal Medicine Gastroenterology
PROC: 0DJD8ZZ Inspection of Lower Intestinal Tract, Via Natural or Artificial Opening Endoscopic (ICD-10-PCS; CPT 45378; principal; 2023-08-21 12:00)
DX: Z12.11 Encounter for screening for malignant neoplasm of colon (principal); D12.4 Benign neoplasm of descending colon; D12.5 Benign neoplasm of sigmoid colon; K57.30 Diverticulosis of large intestine without perforation or abscess without bleeding; K64.8 Other hemorrhoids
CPT/HCPCS: 45385

== ENCOUNTER 2024-05-10 10:08 | Outpatient (CLI) | payer MEDICARE, SELFPAY ==
--- NOTE | ~2024-05-10 | XR_ITS ---
Left elbow Technique: AP, oblique, and lateral views were obtained. Clinical History: Pain Findings: No acute fracture or dislocation is seen. Osseous alignment is anatomic. Joint spaces are p reserved. There is no displacement of the fat pads, and no evidence of joint effusion. There is focal ossification posterior to the distal humerus. Impression: Focal heterotopic or enthesopathic ossification posterior to the distal humerus. Avulsion fracture le ss likely, but if there is concern for underlying triceps tendon pathology, then consider follow-up Kati Rodrigues. Reviewed, dictated and finalized at location M. Impression: Focal heterotopic or enthesopathic ossification posterior to the distal humerus . Avulsion fracture less likely, but if there is concern for underlying triceps tendon pathology, then consider follow-up .
--- OUTSIDE RECORDS SUMMARY | 2024-05-10 10:12 | XMS_ITS | Clinical Summary ---
Author Organization [facility] Address [address] [place] [address] Care Team Providers Care Software Verification Engineer Name Role Phone Viktor Bowman DO Primary Care Provider [phone] Source Comments [facility],non-owned Affiliates and Associated Physician Practices is amultiple site organization consisting of ambulatory clinics and hospital sitesin [place], [place], [place] and [place]. This disclosure is being madepursuant to the Care Everywhere program and may not contain all information available regarding this patient. Last updated 17.[facility] Social History Tobacco Use Types Packs/Day Years Used Date Smoking Tobacco: Never Assessed Sex and Gender Information Value Date Recorded Sex Assigned at Not on file Gender Identity Not on file Sexual Orientation Not on file Plan of Treatment Health Maintenance Due Date Last Done Comments COLOGUARD (AGES 45-75) - COL ON CA SCREENING 1948 COLON MONITORING 1948 COLONOSCOPY - COLON CA SCREENING 1948 CT COLONOGRAPHY - COLON CA SCREENING 1948 Colorectal Cancer Screening 1948 FIT - COLON CA SCREENING 1948 FLEX SIG - COLON CA SCREENING 1948 LIPID TESTING 1948 HEPATITIS C SCREENING 05/18/1966 DTAP/TDAP/TD VACCINES (1 - Tdap) 05/23/1967 PNEUMOCOCCAL VACCINE 50+ (1 of 1 - PCV) 1998 ZOSTER VACCINE (1 of 2) 1998 Respiratory Syncytial Virus (RSV) Vaccine Pt: or over 60 yrs (1 - 1-dose 75+ series) 05/23/2023 COVID-19 VACCINE ( - 2023-2 5 season) 2023 INFLUENZA VACCINE (#1) 2023 DEPRESSION SCREENING 02/13/2024 MEDICARE AWV CALENDAR YEAR 2024 HEPATITIS B VACCINE Aged Out No longe r eligible based on patient's age to complete this topic HIB VACCINE Aged Out No longer eligi ble based on patient's age to complete this topic HPV VACCINE Aged Out No longer eligi ble based on patient's age to complete this topic MENINGOCOCCAL (Group B) VACC INE SHARED DECISION-MAKING Aged Out No longer eligibl e based on patient's age to complete this topic MENINGOCOCCAL GROUPS A/C/Y/W VACCINE Aged Out No longer eligible b ased on patient's age to complete this topic Care Teams Software Verification Engineer Relationship Specialty Start Date End Date Viktor Bowman DO [address] [place], [place] [id number] PCP - General 01/09/22
--- OUTSIDE RECORDS SUMMARY | 2024-05-10 10:12 | XMS_ITS | Encounter Summary ---
Author Organization [facility] Address [address] [place] [address] Care Team Providers Care Edger Machine Operator Name Role Phone Fritz Trammell MD Primary Care Provider [phone] Viktor Bowman DO Primary Care Provider [phone] Encounter Details Date Type Department Care Team (Late st Contact Info) Description 03/22/2020 Lab Requisition [facility] [address] [place] [id number] Nigel Julien MD [address] [id number] Social History Tobacco Use Types Packs/Day Years Used Date Smoking Tobacco: Never Assessed Sex and Gender Information Value Date Recorded Sex Assigned at Not on file Gender Identity Not on file Sexual Orientation Not on file documented as of this encounter Plan of Treatment Not on file documented as of this encounter Procedures Procedure Name Priority Date/Time Associated Diagnosis Comments DERMPATH SLIDE CONSULT Routine 03/22/2020 12:00 AM [facility] documented in this encounter Results * DERMPATH SLIDE CONSULT (03/22/2020 12:00 AM [facility]) Case Report Dermatopathology Report Case: [id number] Authorizing Provider: Nigel Julien MD Collected: 03/22/2020 12:00 AM Ordering Location: [facility] Received: 03/22/2020 09:34 AM Pathologist: Yumiko Roque MD Specimens: A) - Slide(s), Left breast, [id number]# [id number] B) - Slide(s), Left breast, [id number]# [id number] 4:28 PM [facility] Final Diagnosis Specimen A. Slide(s), Left breast, OSC# [id number]: COMPOUND MELANOCYTIC PROLIFERATION; PRESENT AT MARGIN (D48.5) (see microscopic description and comment) Specimen B. Slide(s), Left breast, OSC# [id number]: LENTIGINOUS MELANOCYTIC PROLIFERATION; PRESENT AT MARGIN (D48.5) DERMAL SCAR (L90.5) (see microscopic description and comment) 4:28 PM [facility] Clinical History Materials received from: [facility] [address] [place] [address] A: Received at the request of Dr. Nigel Julien, a consult will be performed on 2 (H&E) slide(s) labeled [id number]. Compound melanocytic proliferatin, extending to the peripheral margin. All slides returned. B: Received at the request of Dr. Nigel Julien, a consult will be performed on (H&E, Jelly A) slide(s) labeled [id number]. None provided. All slides returned. Any additional sections, special stains or immunohistochemical stains performed by our laboratory will be kept here on file. 4:28 PM [facility] Microscopic Description Specimen A. Slide(s), Left breast, OSC# [id number]: Sections show a compound melanocytic proliferation. There is a lentiginous proliferation of melanocytes between irregular nests. Scattered melanocytes show evidence of upward migration within the epidermis. In the dermis there are irregular nests of melanocytes. Melanocytes are highlighted with immunohistochemical staining for MART-1/Melan-A. This lesion is present at the margin of the specimen. COMMENT: Because this lesion is present at the margin of the specimen, symmetry and circumscription cannot be evaluated. Therefore, a complete but conservative re-excision is recommended to evaluate this lesion in its entirety. This case was also reviewed by Dr. Brooklynn Deluna, who agrees. Specimen B. Slide(s), Left breast, OSC# [id number]: Sections show a lentiginous melanocytic proliferation. Scattered melanocytes show evidence of upward migration, focal adnexal extension, and there are focal areas of confluence. The melanocytes are highlighted by MART-1/Melan-A and SOX-10. The lesion extends to the margins of the specimen. There are fibroblasts and collagen bundles oriented parallel to the skin surface with elongated blood vessels, some of which are oriented perpendicular to the skin surface. COMMENT: Based on the histological findings an early melanoma in-situ can not be ruled out. Therefore, a complete but conservative re-excision to ensure complete removal of this lesion is recommended. This case was also reviewed by Dr. Brooklynn Deluna, who agrees. 4:28 PM [facility] Disclaimer An external and internal positive and negative controls are appropriate for the histochemical, immunohistochemical and immunofluorescence stain(s) in this case (if any), except where stated explicitly. The performance characteristics of the stain(s) cited in this report were developed and its performance characteristic determined by the Dermatopathology Laboratory at [facility], directed by Dr. Renetta Deluna. These tests need not be, and therefore are not, approved by the [place] Food and Drug Administration. The tests are used for clinical purposes. Billing Codes Specimen Charges Stain Charges 00282 47583 1 1 00374 [id number] 73800 1 1 1 1 4:28 PM [facility] Embedded Images 1 4:28 PM [facility] Pathology/Cytology SLIDE / Unknown 03/22/2020 0 03/22/2020 9:34 AM [facility] Miscellaneous samples (specimen) SLIDE / Unknown 03/22/2020 03/22/2020 9: 34 AM [facility] Nigel Julien MD LAB - PATHOLOGY/[facility] DERMATOPATHOLOGY LABORATORY [facility] - Department of Dermatology [address] [phone] documented in this encounter Visit Diagnoses Not on filedocumented in this encounter Care Teams Edger Machine Operator Relationship Specialty Start Date End Date Fritz Trammell MD [address] [place] [id number] PCP - General 06/10/20 01/08/22 Viktor Bowman DO [address] [place] [address] PCP - General 01/09/22 documented as of this encounter
== END 2024-05-10 10:09 | disposition home or self-care (01) ==
PROVIDERS: PCP Family Medicine; Visit Provider Family Medicine
DX: M25.522 Pain in left elbow (principal)
CPT/HCPCS: 73080

== ENCOUNTER 2024-07-09 11:03 | Outpatient (CLI) | payer MEDICARE, SELFPAY ==
--- NOTE | ~2024-07-09 | MR_ITS ---
MRI of the left elbow CLINICAL HISTORY: Pain TECHNIQUE: Proton-density and proton-density fat-sat images were performed in the axial, coronal, and sagittal planes. FINDINGS: Ulnar collateral ligament is intact. Radial collateral ligament and the lateral ulnar colla teral ligament appear to be intact. There is moderate grade partial thickness tearing with advanced t endinosis at the common extensor tendon origin. There is moderate tendinosis of the common flexor ten don origin as well. Bone marrow signals are unremarkable. No fracture or marrow edema. Small elbow joint effusion present , nonspecific. Articular cartilage is intact. Biceps and brachialis tendons are intact. There is near complete rupture of the distal triceps tendon from its lateral insertion. A few of the lateral most fibers remain intact (sagittal image 7). There is 4.7 x 1.9 x 5.0 cm fluid collection at the site of ruptured tendon, with retraction of the torn p ortion of the tendon from the olecranon by 3 cm. There is subcutaneous soft tissue edema as well as t he posterior aspect of the elbow. IMPRESSION: Near complete full-thickness rupture of the triceps tendon, as detailed above, with a few of the most lateral fibers remaining intact. 4.7 x 1.9 x 5.0 fluid collection in the site of the ruptured tendon with retraction of the torn tendo n from the olecranon by 3 cm. Moderate tendinosis of the common flexor and common extensor tendon origins, with superimposed inters titial tearing of the common extensor tendon origin. Small elbow joint effusion. Reviewed, dictated and finalized at location . IMPRESSION: Near complete full-thickness rupture of the triceps tendon, as detailed above, with a few of the most lateral fibers remaining intact. 4.7 x 1.9 x 5.0 fluid collection in the site of the ruptured tendon with retrac tion of the torn tendon from the olecranon by 3 cm. Moderate tendinosis of the common flexor and common extensor tendon origins, wi th superimposed interstitial tearing of the common extensor tendon origin. Small elbow joint effusion.
--- OUTSIDE RECORDS SUMMARY | 2024-07-09 11:08 | XMS_ITS | Encounter Summary ---
Author Organization [facility] Address [address] [place] [address] Care Team Providers Care Graphic Engineer Name Role Phone Fritz Trammell MD Primary Care Provider [phone] Viktor Bowman DO Primary Care Provider [phone] Encounter Details Date Type Department Care Team (Late st Contact Info) Description 03/22/2020 Lab Requisition [facility] DermPath Lab [address] [place] [id number] Nigel Julien MD [address] [place] [address] Social History Tobacco Use Types Packs/Day Years Used Date Smoking Tobacco: Never Assessed Sex and Gender Information Value Date Recorded Sex Assigned at Not on file Legal Sex 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 Gender Identity Not on file Sexual Orientation Not on file documented as of this encounter Plan of Treatment Not on file documented as of this encounter Procedures Procedure Name Priority Date/Time Associated Diagnosis Comments DERMPATH SLIDE CONSULT Routine 03/22/2020 12:00 AM OUTSIDE MACHINIST documented in this encounter Results * DERMPATH SLIDE CONSULT (03/22/2020 12:00 AM OUTSIDE MACHINIST) Case Report Dermatopathology Report Case: [id number] Authorizing Provider: Nigel Julien MD Collected: 03/22/2020 12:00 AM Ordering Location: [facility] DermPath Lab Received: 03/22/2020 09:34 AM Pathologist: Yumiko Roque MD Specimens: A) - Slide(s), Left breast, [id number]# [id number] B) - Slide(s), Left breast, [id number]# [id number] 4:28 PM [facility] DERMATOPATHOLOGY LABORATORY Final Diagnosis Specimen A. Slide(s), Left breast, OSC# [id number]: COMPOUND MELANOCYTIC PROLIFERATION; PRESENT AT MARGIN (D48.5) (see microscopic description and comment) Specimen B. Slide(s), Left breast, OSC# [id number]: LENTIGINOUS MELANOCYTIC PROLIFERATION; PRESENT AT MARGIN (D48.5) DERMAL SCAR (L90.5) (see microscopic description and comment) 4:28 PM [facility] DERMATOPATHOLOGY LABORATORY at [address] [facility] Clinical History Materials received from: [facility] Pathology [address] [place] [id number] A: Received at the request of Dr. Nigel Julien, a consult will be performed on 2 (H&E) slide(s) labeled [id number]. Compound melanocytic proliferatin, extending to the peripheral margin. All slides returned. B: Received at the request of Dr. Nigel Julien, a consult will be performed on (H&E, Jelly A) slide(s) labeled [id number]. None provided. All slides returned. Any additional sections, special stains or immunohistochemical stains performed by our laboratory will be kept here on file. 4:28 PM [facility] DERMATOPATHOLOGY LABORATORY Microscopic Description Specimen A. Slide(s), Left breast, OSC# [id number]: Sections show a compound melanocytic proliferation. There [...] agrees. Specimen B. Slide(s), Left breast, OSC# [id number]: Sections show a lentiginous melanocytic proliferation. Scattered [...] Dr. Brooklynn Deluna, who agrees. 4:28 PM [facility] DERMATOPATHOLOGY LABORATORY Disclaimer An external and internal positive and negative controls are appropriate for the histochemical, immunohistochemical and immunofluorescence stain(s) in this case (if any), except where stated explicitly. The performance characteristics of the stain(s) cited in this report were developed and its performance characteristic determined by the Dermatopathology Laboratory at [facility], directed by Dr. Renetta Deluna. These tests need not be, and therefore are not, approved by the [place] Food and Drug Administration. The tests are used for clinical purposes. Billing Codes Specimen Charges Stain Charges 92221 35609 1 1 49298 94581 86049 1 1 1 1 4:28 PM OUTSIDE MACHINIST DERMATOPATHOLOGY LABORATORY Embedded Images 1 4:28 PM OUTSIDE MACHINIST DERMATOPATHOLOGY LABORATORY Pathology/Cytology SLIDE / Unknown 03/22/2020 0 03/22/2020 9:34 AM OUTSIDE MACHINIST Miscellaneous samples (specimen) SLIDE / Unknown 03/22/2020 03/22/2020 9: 34 AM OUTSIDE MACHINIST us Nigel Julien MD LAB - PATHOLOGY/CYTOLOGY ORDER KARSTEN Final Result DERMATOPATHOLOGY LABORATORY [facility] - Department of Dermatology [address] [place] [address], [facility] [phone] documented in this encounter Visit Diagnoses Not on filedocumented in this encounter Care Teams Graphic Engineer Relationship Specialty Start Date End Date Fritz Trammell MD [address] [place] [id number] PCP - General 06/10/20 01/08/22 Viktor Bowman DO [address] [place] [address] PCP - General 01/09/22 documented as of this encounter
--- OUTSIDE RECORDS SUMMARY | 2024-07-09 11:08 | XMS_ITS | Clinical Summary ---
Author Organization [facility] Address [facility] [address] [place] [address] Care Team Providers Care Floral Designer Salesperson Name Role Phone Maurisio Dowell MD Primary Care Provider [phone] Allergies No known active allergies Medications gabapentin (NEURONTIN) 400 mg capsule Take 1 capsule (400 mg total) by mouth Take 3 capsules two times daily Active omeprazole (PriLOSEC) 40 mg capsule Take 1 capsule (40 mg total) by mouth daily Take 1 tablet daily Active atenolol (TENORMIN) 50 mg tablet Take 1 tablet (50 mg total) by mouth daily Take 1 tablet daily Active rosuvastatin (CRESTOR) 20 mg tablet Take 2 tablets (40 mg total) by mouth daily Take 1 tablet daily Active aspirin 81 mg tablet Take 81 mg by mouth daily. Take 1 tablet daily Active fish oil-dha-epa 1,200-144-216 mg capsule Take by mouth. Take 1 tablet daily Active multivitamin tabletIndicatio ns:Vitamin Deficiency Prevention Take 1 tablet by mouth Active naproxen (ANAPROX,ALEVE) 220 mg tablet Take by mouth 2 (two) times a day with meals. 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 Encounters Date Type Department Care Team Description 06/23/2024 9:30 AM CDT Office Visit [facility] Orthopedic and Sports Medicine [address] [place] [phone] Boby Naik PA Olecranon bursitis of left elbow (Primary Dx); Triceps strain, left, initial encounter 06/23/2024 9:25 AM CDT Ancillary Procedure [facility] Imaging at [address] [phone] from Last 3 Months Social History Tobacco Use Types Packs/Day Years Used Date Smoking Tobacco: Former Smokeless Tobacco: Former AUDIT-C Answer Date Recorded Q1: How often do you have a drink containing alc ohol? 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 Gender Identity Not on file Sexual Orientation Not on file Obstetrics History Last Filed Vital Signs Vital Sign Reading Time Taken Comments Blood Pressure 157/91 06/23/2024 9:37 AM CDT Pulse 54 06/23/2024 9:37 AM CDT Temperature - - Respiratory Rate - - Oxygen Saturation - - Inhaled Oxygen Concentration - - Weight 78.9 kg (174 lb) 06/23/2024 9:37 AM CDT Height 175.3 cm (5' 9) 06/23/2024 9:37 AM CDT Body Mass Index 25.7 06/23/2024 9:37 AM CDT Plan of Treatment Health Maintenance Due Date Last Done Comments Depression Screening 1948 Fall Risk Assessment 1950 Hepatitis C Screening 1948 Hepatitis B Screening 1966 Zoster Vaccine (2 of 3) 02/06/2012 12/12/2011 Abdominal Aortic Aneurysm (A AA) Screen 2013 Well Visit 65+ 2013 Covid-19 Vaccine (2023-2 5 season) 2024 11/01/2023, 11/07/2022, 11/02/2021, Additional history exists DTaP/Tdap/Td Vaccine (2 - Td or Tdap) 08/22/2032 08/22/2022 Pneumococcal vaccine 65+ Completed 02/28/2022, 03/15 Influenza Vaccine Completed 11/01/2023, , 11/02/2021, Additional history exists Procedures Procedure Name Priority Date/Time Associated Diagnosis Comments XR ELBOW LEFT 3 OR MORE VIEWS Schedule Routine, Read Routine (OP Routine) 06/23/2024 9:38 AM CDT Olecranon bursitis of left elbow from Last 3 Months Results * XR Elbow Left 3 or More Views (06/23/2024 9:38 AM CDT) Anatomical Region Laterality Modality Upper Extremities, Elbow Left Digital Radiography Narrative 06/23/2024 9:47 AM CDT Three views of the left elbow are negative for acute fracture dislocation or osseous lesion. Moderate arthritic change noted throughout the elbow and chronic changes noted over both the medial and lateral epicondyles posteriorly in the distal triceps there is calcification noted. There is also soft tissue swelling noted on the posterior elbow. Boby MCCORMACK IMG XR PROCEDURES Final Res ult from Last 3 Months Insurance UHC MEDICARE ADVANTAGE [employer] MEDICARE Care Teams Floral Designer Salesperson Relationship Specialty Start Date End Date Maurisio Dowell MD [address] [place] [address] PCP - General 04/03/17
--- OUTSIDE RECORDS SUMMARY | 2024-07-09 11:08 | XMS_ITS | Referral Summary ---
Author Organization [facility] Address [facility] [place] [address] Care Team Providers Care Fixed Income Director Name Role Phone Maurisio Dowell MD Primary Care Provider [phone] Encounters Date Type Department Care Team Description 06/23/2024 9:25 AM CDT Ancillary Procedure [facility] Imaging at [address] [phone] 06/23/2024 9:30 AM CDT Office Visit [facility] Orthopedic and Sports Medicine [address] [place] [phone] Boby Naik PA Olecranon bursitis of left elbow (Primary Dx); Triceps strain, left, initial encounter from Last 3 Months Allergies No known active allergies Medications gabapentin [...] Diagnosed Date Polyneuropathy 09/20/2017 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 Social History Tobacco Use Types Packs/Day Years [...] on file 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
--- OUTSIDE RECORDS SUMMARY | 2024-07-09 11:08 | XMS_ITS | Clinical Summary ---
Author Organization [email or web address] Address [address] [place] [address] Care Team Providers Care Prn Physical Therapist Name Role Phone Viktor Bowman DO Primary Care Provider [phone] Source Comments [facility],non-owned Affiliates and Associated Physician Practices is amultiple site organization consisting of ambulatory clinics and hospital sitesin [place], [place], [place] and [place]. This disclosure is being madepursuant to the Care Everywhere program and may not contain all information available regarding this patient. 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 Gender Identity Not on file Sexual Orientation Not on file Plan of Treatment Health Maintenance Due Date Last Done Comments HEPATITIS C SCREENING 05/18/1966 DTAP/TDAP/TD VACCINES (1 - Tdap) 05/23/1967 PNEUMOCOCCAL VACCINE 50+ (1 of 1 - PCV) 1998 ZOSTER VACCINE (1 of 2) 1998 Respiratory Syncytial Virus (RSV) Vaccine Pt: or over 60 yrs (1 - 1-dose 75+ series) 05/23/2023 COVID-19 VACCINE ( - 2023-2 5 season) 2023 DEPRESSION SCREENING 02/13/2024 MEDICARE AWV CALENDAR YEAR 2024 INFLUENZA VACCINE (Season Ended) 2024 HEPATITIS B VACCINE Aged Out No [...] on patient's age to complete this topic Insurance [facility] MANAGED MEDICARE ADV AETNA MEDICARE ADV * Guarantor: NAGA FABIAN Account Type Relation to Patient Date of Phone Billing Address Personal/Family [address] [place] [address] AETNA MEDICARE ADV SELF PAY NO INSURANCE Member Subscriber Plan / Payer (Ef fective for All Dates) Name:Naga Fabian Member ID:Not on file Relation to Subscriber:Not on file Name:NAGA FABIAN Subscriber ID:Not on file Address: [facility] [place] [address] [place] [address] Payer ID:Not on file Group ID:Not on file Type:Self Pay Address: [place], [place] * Guarantor: NAGA FABIAN Account Type Relation to Patient Date of Phone Billing Address Personal/Family [address] [place] [address] AETNA MEDICARE ADV SELF PAY NO INSURANCE Member Subscriber Plan / Payer (Ef fective for All Dates) Name:Naga Fabian Member ID:Not on file Relation to Subscriber:Not on file Name:NAGA FABIAN Subscriber ID:Not on file Address: [facility] [place] [address] Payer ID:Not on file Group ID:Not on file Type:Self Pay Address: [place], [place] * Guarantor: NAGA FABIAN Account Type Relation to Patient Date of Phone Billing Address Personal/Family [address] [place] [address] AETNA MEDICARE ADV SELF PAY NO INSURANCE Member Subscriber Plan / Payer (Ef fective for All Dates) Name:Naga Fabian Member ID:Not on file Relation to Subscriber:Not on file Name:NAGA FABIAN Subscriber ID:Not on file Address: [address] [place] [address] [place] [address] Payer ID:Not on file Group ID:Not on file Type:Self Pay Address: [place], [place] Care Teams Prn Physical Therapist Relationship Specialty Start Date End Date Viktor Bowman DO [address] [place], [place] [id number] PCP - General 01/09/22
== END 2024-07-09 11:04 | disposition home or self-care (01) ==
PROVIDERS: PCP Family Medicine; Visit Provider Family Medicine
DX: S56.512A Strain of other extensor muscle, fascia and tendon at forearm level, left arm, initial encounter (principal); S46.312A Strain of muscle, fascia and tendon of triceps, left arm, initial encounter; X58.XXXA Exposure to other specified factors, initial encounter; M67.814 Other specified disorders of tendon, left shoulder; M70.20 Olecranon bursitis, unspecified elbow; M25.422 Effusion, left elbow
CPT/HCPCS: 73221

== ENCOUNTER 2024-10-16 11:00 | Outpatient (RCR) | payer MEDICARE, SELFPAY ==
--- NOTE | 2024-09-08 12:11 | OPREHPOC ---
Outpatient Therapy Plan of Care This is a Multidisciplinary Plan of Care that may contain components documented by all disciplines (PT, OT, and ST.) PT Problem 1 PT Problem #1 Knowledge Deficit PT Goal 1 Goal / Goal Update *independent with HEP Target Visit 10 PT Problem 2 PT Problem #2 Pain PT Goal 1 Goal / Goal Update * pain rating at worst 2/10 with increased activity level Target Visit 10 PT Problem 3 PT Problem #3 Impaired Range of Motion PT Goal 1 Goal / Goal Update *increase L elbow flexion to 120' Target Visit 10 PT Problem 4 PT Problem #4 Impaired Strength PT Goal 1 Goal / Goal Update *increase strength of L UE: 10 reps 1* elbow flexion 3# hand wt 2* wrist flexion/extension 5# 3* shoulder flexion 3# --------progression to strengthening with hand wt after September 22 Target Visit 10
--- NOTE | 2024-09-08 12:11 | PTOPEVAL1 ---
Assessment and note entered by Gretchen Bustos, PT Evaluation Information Assessment Status Evaluation Other ICD-10 Condition Codes ( M66.822 UE tendon repair PT) Onset May 2024 Subjective Information spontaneous rupture of L distal triceps--no trauma , just not able to use L arm; surgical repair on 08-18-24; had soft cast on until 2 weeks ago and now have hinged brace over L elbow with lock 0-30' motion; have not been doing any exercises for his L arm. 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 He is R hand dominant and at last week's dr appointment , went from a soft cast to a hinged brace set at 0 -30'. Prior to surgery, active, retired and no limitations in activity level. Quick DASH rating of 66% limitation in activity level. Sleeping is disrupted due to L arm discomfort with rolling and sleeping on his sides. With the evaluation: L shoulder flexion, wrist and finger flexion/extension ranges are WNL; passive L elbow ROM is 0-85'; slight edema over humerus, wrist and dorsum of hand. Dressing intact over distal-posterior humerus. Protocol at stage 1 is not specified-- called and left message at dr office to clarify exercises for elbow--passive, active and any restrictions or other instructions. Skilled PT services are indicated for therapeutic exercises per protocol from dr, with modalities PRN for pain control and education to pt for HEP and exercises/activity progression. Plan of Care Interventions Hot Pack/Cold Pack,Manual Therapy,Patient/ Caregiver Education,Therapeutic Activities, Therapeutic Exercise,Other Other Interventions taping PT Services Indicated Yes Treatment Frequency and 1-2x/wk for 10 visits Duration These treatments will address the objective and functional deficits as defined above. The patient will be advanced safely and appropriately in order for the patient to progress towards his/her prior level of function. Additional exercises will be introduced and as well as a comprehensive home exercise program upon discharge, if needed, ?to ensure carryover of functional gains achieved in the clinic. This treatment plan has been reviewed and agreement upon by the patient.
--- NOTE | 2024-09-08 12:12 | PCPTNOTE ---
I called Dr Machado's office and talked with staff, they will fax us protocol clarification for Stage 1 exercises for pt.
--- NOTE | 2024-09-11 14:18 | PCPTNOTE ---
received message to call Carine Go, PAC [phone]; talked with her on phone about pt and received new faxed protocol: she stressed to advance elbow flexion slowly due to a severe tear with involved repair; stage 1--- PROM of elbow, may advance elbow brace setting: to 90' flexion week 4-6 post op; he has follow up appointment at post op week 6. They will let us know if any different than protocol.
--- NOTE | 2024-09-26 14:58 | PCPTNOTE ---
pt canceled today's appt due to illness.
--- NOTE | 2024-10-16 11:33 | OPREHPOC ---
Outpatient Therapy Plan of Care This is a Multidisciplinary Plan of Care that may contain components documented by all disciplines (PT, OT, and ST.) PT Problem 1 PT Problem #1 Knowledge Deficit PT Goal 1 Goal / Goal Update *independent with HEP 10-16-24 d/c goal met Target Visit 10 Progress Met PT Problem 2 PT Problem #2 Pain PT Goal 1 Goal / Goal Update * pain rating at worst 2/10 with increased activity level 10-16-24 d/c goal met Target Visit 10 Progress Met PT Problem 3 PT Problem #3 Impaired Range of Motion PT Goal 1 Goal / Goal Update *increase L elbow flexion to 120' 10-16-24 d/c goal met Target Visit 10 Progress Met PT Problem 4 PT Problem #4 Impaired Strength PT Goal 1 Goal / Goal Update *increase strength of L UE: 10 reps 1* elbow flexion 3# hand wt 2* wrist flexion/extension 5# 3* shoulder flexion 3# --------progression to strengthening with hand wt after September 22 10-16-24 d/c goals met Target Visit 10 Progress Met
--- NOTE | 2024-10-16 11:33 | PTOPDC ---
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 Today's assessment: reports NO pain in L elbow or UE; self assessment with Quick DASH rating of 18 % limitation in activity level; full ROM of L shoulder, elbow, wrist without pain; standing x 10 reps with hand wt: Strength: L UE: elbow flexion/extension with elbow at side 4# shoulder flexion with 3# wrist flexion/ extension with 5# tricep press with shoulder flexion ~ 90' with 3# tricep press with trunk flexion and lifting against gravity-- unable to achieve full elbow extension, is (-50'), able to use 3# Naga is motivated and doing his HEP, observing the 5# weight limit. He understands to continue the limit until his follow up appointment at the end of the month. The goals were achieved. Discharge PT services. Plan of Care PT Services Indicated No
== END 2024-10-16 15:05 | disposition home or self-care (01) ==
LOC: ANHPT 11:00
PROVIDERS: PCP Family Medicine; Visit Provider Orthopaedic Surgery
DX: M66.822 Spontaneous rupture of other tendons, left upper arm (principal); S46.312S Strain of muscle, fascia and tendon of triceps, left arm, sequela; Z98.890 Other specified postprocedural states
CPT/HCPCS: 97110; 97161; 97530